=== PATIENT | female | born 1945 | race Caucasian/White ===

== ENCOUNTER 2018-03-29 16:20 | Emergency (ER) | payer MEDICARE ==
[~2018-03-29] VITALS: Ht 152.4 cm; Wt 96.4 kg
[2018-03-29] MEDS ORDERED: NORCO1 TA2 PO (16:57)
[2018-03-29] MEDS ORDERED: CELEXA20 MG PO (16:57)
[2018-03-29] MEDS ORDERED: ALLERGY NA50 MCG/ACT NAB (16:58)
[2018-03-29] MEDS ORDERED: MAXZIDE-2537.5 MG/TA PO (16:59)
[2018-03-29] MEDS ORDERED: OMEPRAZOLE20 M2 PO (16:59)
[2018-03-29] MEDS ORDERED: ATIVAN1 MG PO (16:59)
[2018-03-29] MEDS ORDERED: TRAZODONE100 MG PO (17:00)
[2018-03-29] MEDS ORDERED: DOXYCYC MONO100 M2 PO (17:01)
[2018-03-29] MEDS ORDERED: PREDNISONE50 MG PO (17:01)
[2018-03-29 17:05] VITALS: BP 125/61
== END 2018-03-29 17:05 | disposition home or self-care (01) ==
LOC: ED 16:20
DX: L25.9 Unspecified contact dermatitis, unspecified cause (principal); I10 Essential (primary) hypertension; F41.9 Anxiety disorder, unspecified; K21.9 Gastro-esophageal reflux disease without esophagitis